=== PATIENT | female | born 1990 | race African-American/Black ===

== ENCOUNTER 2024-03-17 13:19 | Inpatient (IN) | payer OTHER ==
[2024-03-17 14:32] VITALS: BMI 34.3
[2024-03-17] MEDS ORDERED: BUTORPHANOL TARTRATE 1 MG/ML VIAL IVPB PRN (14:48)
[2024-03-17] MEDS ORDERED: AMPICILLIN SODIUM 2 GM VIAL ONE (15:07)
[2024-03-17] MEDS ORDERED: SODIUM CHLORIDE 100 ML IVPB ONE (15:07)
[2024-03-17] MEDS ORDERED: OXYTOCIN 30 UNITS in 0.9% NS 30 UNIT/500 ML INFUS.BAG IVPB ONE (15:09)
[2024-03-17 15:12] LABS: BASO % 0.4 % (0-2.0); EOS % 0.3 % (0-4.5); HEMATOCRIT 37.1 % (32.4-45.2); HEMOGLOBIN 12.4 GM/dL (10.7-15.3); LYMPH % 19.8 % (8-40); MCH 29.9 pg (25.7-33.7); MCHC 33.5 g/dl (32.0-36.0); MEAN CELL VOLUME 89.2 fl (80-96); MEAN PLT VOLUME 9.5 fl (7.5-11.1); MONO % 7.6 % (3.8-10.2); NEUT % 71.9 % (42.8-82.8); PLATELET COUNT 194 10^3/uL (134-434); RBC 4.16 M/mm3 (3.60-5.2); RDW 13.4 % (11.6-15.6); WHITE BLOOD COUNT 9.8 K/mm3 (4.0-10.0)
[2024-03-17] MEDS: ELECTROLYTE-148 SOLN 1,000 ML IV SCH (15:15)
[2024-03-17 15:18] LABS: INR 0.94 (0.83-1.09); PROTHROMBIN TIME (PATIENT) 10.8 SEC (9.7-13.0)
[2024-03-17] MEDS: AMPICILLIN - 2 GM in SODIUM CHLORIDE 100 ML IVPB ONE (15:18)
[2024-03-17] MEDS: OXYTOCIN 30 UNITS in 0.9% NS 30 UNIT/500 ML INFUS.BAG IVPB SCH (15:20)
[2024-03-17 15:38] LABS: ALBUMIN 2.4 g/dl (3.4-5.0); BLOOD UREA NITROGEN 8.4 mg/dL (7-18); CALCIUM 8.8 mg/dL (8.5-10.1)
[2024-03-17 15:41] LABS: CREATININE 0.6 mg/dL (0.55-1.3)
[2024-03-17 15:43] LABS: BILIRUBIN,TOTAL 0.4 mg/dL (0.2-1); TOT PROT 6.9 g/dl (6.4-8.2)
[2024-03-17] MEDS ORDERED: AMPICILLIN SODIUM 1 GM VIAL ONE ×2 (19:04→23:01)
[2024-03-17] MEDS: AMPICILLIN - 1 GM in SODIUM CHLORIDE 100 ML IVPB SCH (19:15)
[2024-03-17] MEDS ORDERED: FENTANYL/BUPIVACAINE/NS/PF - PCEA - 50 ML DISP.SYRIN EP ONE (21:58)
[2024-03-17] MEDS ORDERED: NALOXONE HCL 0.4 MG/ML VIAL IVPUSH PRN (22:44)
[2024-03-18] MEDS ORDERED: FENTANYL/BUPIVACAINE/NS/PF - PCEA - 50 ML DISP.SYRIN EP ONE ×2 (02:49→07:24)
[2024-03-18] MEDS ORDERED: AMPICILLIN SODIUM 1 GM VIAL ONE ×2 (02:54→06:59)
[2024-03-18] MEDS: FENTANYL/BUPIVACAINE/NS/PF - PCEA - 50 ML DISP.SYRIN EP SCH (02:57)
[2024-03-18] MEDS ORDERED: WITCH HAZEL 50% (TUCKS) 40 PAD/JAR PAD TP PRN (05:04)
[2024-03-18] MEDS ORDERED: METHYLERGONOVINE MALEATE 0.2 MG/1 ML AMP IM PRN (05:04)
[2024-03-18] MEDS ORDERED: BENZOCAINE 20% 57 GM BOTTLE TP PRN (05:04)
[2024-03-18] MEDS ORDERED: BENZOCAINE 28 GM HEMORRHOIDAL OINTMENT TP PRN (05:04)
[2024-03-18] MEDS ORDERED: LIDOCAINE HCL 1% PRESERVATIVE FREE - 30ML VIAL ONE (05:26)
[2024-03-18] MEDS ORDERED: OXYTOCIN 20 UNITS in 0.9% NS 20 UNIT/1,000 ML INFUS.BAG IV ONE ×2 (05:27→11:12)
[2024-03-18] MEDS ORDERED: LIDO 2%/EPI 1:200000 PRESRVFRE (20 ML SDVIAL) ONE (07:59)
[2024-03-18] MEDS ORDERED: FENTANYL CITRATE/PF 50 MCG/ML VIAL ONE (07:59)
[2024-03-18] MEDS ORDERED: SUCCINYLCHOLINE CHLORIDE 200 MG/10 ML SYRINGE ONE (08:04)
[2024-03-18] MEDS ORDERED: morphine SULFATE/PF 1 MG/2 ML (2cc Syringe - QUVA) ONE (08:04)
[2024-03-18] MEDS ORDERED: PROPOFOL 20 ML ONE (08:04)
[2024-03-18] MEDS ORDERED: ceFAZolin SODIUM 1 GM VIAL ONE (08:11)
[2024-03-18] MEDS ORDERED: ONDANSETRON 4 MG/2 ML VIAL ONE (08:17)
[2024-03-18] MEDS ORDERED: OXYTOCIN 10 UNITS/ML VIAL ONE (08:22)
[2024-03-18 08:53] LABS: CORD HCO3 22.7 mmHg (20-29); CORD PCO2 55.4 mmHg (30-78)
[2024-03-18 08:57] LABS: CORD HCO3 20.2 mmHg (20-29); CORD PCO2 53.7 mmHg (30-78); CORD pH 7.194 (7.14-7.44)
[2024-03-18] MEDS ORDERED: ONDANSETRON 4 MG/2 ML VIAL IVPUSH PRN (09:10)
[2024-03-18] MEDS: FERROUS SO4 325 MG TABLET (FP) PO SCH (09:15)
[2024-03-18] MEDS ORDERED: ACETAMINOPHEN INJECTION 100 ML IVPB ONE (09:55)
[2024-03-18] MEDS: ACETAMINOPHEN 1000 MG/100 ML BAG IVPB ONE (10:00)
[2024-03-18] MEDS: OXYTOCIN 20 UNITS in 0.9% NS 20 UNIT/1,000 ML INFUS.BAG IV SCH (10:45)
[2024-03-18] MEDS ORDERED: IBUPROFEN 800 MG/8 ML IJ IVPB ONE (11:43)
[2024-03-18] MEDS: IBUPROFEN 800 MG/8 ML IJ IVPB ONE (11:45)
[2024-03-18 13:56] LABS: POC NITRAZINE POS
[2024-03-18] MEDS: morphine SULFATE/PF 1 MG/2 ML (2cc Syringe - QUVA) EP ONE (16:37)
[2024-03-18] MEDS: PRENATAL VITAMINS W/ FOLIC ACID TABLET (FP) PO SCH (16:37)
[2024-03-18] MEDS: PROMETHAZINE HCL 25 MG/1 ML VIAL IVPB ONE (16:42)
[2024-03-18] MEDS: ACETAMINOPHEN 325 MG TABLET (FP) PO PRN (22:05)
[2024-03-19] MEDS: oxyCODONE HCL 5 MG TABLET PO PRN (02:02)
[2024-03-19 06:20] VITALS: RESP 18
[2024-03-19 06:50] LABS: BASO % 0.2 % (0-2.0); EOS % 0.1 % (0-4.5); HEMATOCRIT 33.7 % (32.4-45.2); HEMOGLOBIN 11.4 GM/dL (10.7-15.3); LYMPH % 16.4 % (8-40); MCH 30.2 pg (25.7-33.7); MCHC 33.9 g/dl (32.0-36.0); MEAN CELL VOLUME 89.3 fl (80-96); MEAN PLT VOLUME 8.8 fl (7.5-11.1); MONO % 7.1 % (3.8-10.2); NEUT % 76.2 % (42.8-82.8); PLATELET COUNT 177 10^3/uL (134-434); RBC 3.77 M/mm3 (3.60-5.2); RDW 13.3 % (11.6-15.6)
[2024-03-19] MEDS: IBUPROFEN 600 MG TABLET (FP) PO PRN (07:51)
[2024-03-19] MEDS: CEFAZOLIN 1 GM in DEXTROSE 5%-WATER - 50 ML IVPB SCH (10:04)
[2024-03-19 11:08] LABS: RUBELLA ANTIBODY,IGM <20.0 AU/mL (0.0-19.9)
[2024-03-19] MEDS: SENNOSIDES/DOCUSATE COMBO (SENNA PLUS) TABLET (UD) PO PRN (20:41)
[2024-03-20] MEDS: BISACODYL 10 MG SUPP.RECT RC PRN (09:22)
[2024-03-21 09:58] VITALS: BP 129/71; PULSE 79; TEMP 98.1
== END 2024-03-21 12:15 | disposition home or self-care (01) | DRG 788 ==
LOC: JLDR 13:19 → J3W 03-18 12:00
PROVIDERS: ADMIT Obstetrics & Gynecology; ATTEND Obstetrics & Gynecology
PROC: 10D00Z1 Extraction of Products of Conception, Low, Open Approach (ICD-10-PCS; principal; 2024-03-19)
DX: O48.0 Post-term pregnancy (principal); O99.824 Streptococcus B carrier state complicating childbirth; O32.4XX0 Maternal care for high head at term, not applicable or unspecified; O77.9 Labor and delivery complicated by fetal stress, unspecified; Z3A.41 41 weeks gestation of pregnancy; Z37.0 Single live birth
CPT/HCPCS: 36415; 36600; 80053; 82803; 83986-QW; 85025; 85610; 85730; 86762; 86780; 86850; 86900; 86901; 88307-TC; 94010; J0131